=== PATIENT | female | born 1985 | race Caucasian/White ===

== ENCOUNTER 2018-09-01 09:28 | Emergency (ER) | payer SELFPAY ==
[~2018-09-01] VITALS: Ht 170.2 cm; Wt 55.0 kg
[~2018-09-01 09:28] MED LIST: IBUP-1222 PO; PREN1TAB60 PO
[2018-09-01 09:37] VITALS: BP 138/76
[2018-09-01] MEDS ORDERED: DEXAMETHASONE 4 MG TABLET ONE (10:44)
[2018-09-01] MEDS ORDERED: DEXAMETHASONE 4 MG TABLET PO ONE (11:00)
== END 2018-09-01 11:47 | disposition home or self-care (01) ==
LOC: ED 09:50
DX: M67.431 Ganglion, right wrist (principal); J02.9 Acute pharyngitis, unspecified; B34.9 Viral infection, unspecified; N63.0 Unspecified lump in unspecified breast
CPT/HCPCS: 87081; 87880; 99284

== ENCOUNTER 2019-03-28 11:46 | Emergency (ER) | payer MEDICAID ==
[~2019-03-28] VITALS: Ht 170.2 cm; Wt 50.2 kg
[2019-03-28 11:56] VITALS: BP 115/62
== END 2019-03-28 13:34 | disposition home or self-care (01) ==
LOC: ED 13:20
DX: J06.9 Acute upper respiratory infection, unspecified (principal); F17.200 Nicotine dependence, unspecified, uncomplicated
CPT/HCPCS: 71046; 99283

== ENCOUNTER 2019-06-03 17:24 | Emergency (ER) | payer MEDICAID ==
[~2019-06-03] VITALS: Ht 172.7 cm; Wt 50.9 kg
--- NOTE | 2019-06-03 17:44 | NUR ---
PT TO US.
[2019-06-03 17:52] LABS: BASOPHILS # (AUTO) 0.09 x10^3/uL (0-0.1); BASOPHILS % (AUTO) 1 % (0-1); EOSINOPHILS # (AUTO) 0.35 x10^3/uL (0-0.4); EOSINOPHILS % (AUTO) 3 % (1-7); LYMPHOCYTES # (AUTO) 3.13 x10^3/uL (1-3.4); LYMPHOCYTES % (AUTO) 26 % (22-44); MD NO; MEAN CORPUSCULAR HEMOGLOBIN 32.9 pg (27.0-34.8); MEAN CORPUSCULAR HGB CONC 33.1 g/dL (32.4-35.8); MEAN CORPUSCULAR VOLUME 99.2 fL (80-100); MEAN PLATELET VOLUME 8.5 fL (7.4-10.4); MONOCYTES # (AUTO) 0.99 x10^3/uL (0.2-0.8); MONOCYTES % (AUTO) 8 % (2-9); NEUTROPHILS # (AUTO) 7.63 x10^3/uL (1.8-6.8); NEUTROPHILS % (AUTO) 63 % (42-75); PLATELET COUNT 277 x10^3/uL (130-400); RED BLOOD COUNT 4.41 x10^6/uL (3.82-5.3); RED CELL DISTRIBUTION WIDTH 13.9 % (9.6-15.2)
[2019-06-03] MEDS ORDERED: KETOROLAC 30 MG/1 ML IM ONE (18:00)
[2019-06-03] MEDS ORDERED: KETOROLAC 30 MG/1 ML ONE (18:10)
--- NOTE | 2019-06-03 18:17 | NUR ---
PT BACK FROM US. TORADOL GIVEN PER ERP ORDER FOR 8 PELVIC PAIN. URINE COLLECTED/SENT TO LAB.
[2019-06-03 18:40] VITALS: BP 106/62
--- NOTE | 2019-06-03 18:41 | NUR ---
VS UPDATED AND WNL. PT RESTING WITH NO COMPLAINTS.
[2019-06-03 18:54] LABS: CULTURE INDICATED? YES; MICROSCOPIC INDICATED
--- NOTE | 2019-06-03 19:13 | NUR ---
REPORT RECEIVED FROM CHUY SEAMAN.
--- NOTE | 2019-06-03 19:54 | NUR ---
Patient given discharge instructions and they have confirmed that they understand the instructions. Patient ambulatory with steady gait.
== END 2019-06-03 19:55 | disposition home or self-care (01) ==
LOC: ED 17:41
DX: N83.201 Unspecified ovarian cyst, right side (principal); R10.2 Pelvic and perineal pain; M54.5 Low back pain
CPT/HCPCS: 36415; 74018; 76830; 81001; 84703; 85025; 87086; 96372; 99284; J1885

== ENCOUNTER 2019-06-06 19:43 | Emergency (ER) | payer MEDICAID ==
[~2019-06-06] VITALS: Ht 170.2 cm; Wt 52.1 kg
[2019-06-06 19:48] VITALS: BP 106/68
== END 2019-06-06 23:01 | disposition home or self-care (01) ==
LOC: ED 22:55
DX: N93.8 Other specified abnormal uterine and vaginal bleeding (principal); A64 Unspecified sexually transmitted disease; R10.31 Right lower quadrant pain; R10.32 Left lower quadrant pain; R10.33 Periumbilical pain
CPT/HCPCS: 36415; 80053; 81001; 83690; 84703; 85025; 87210; 87491; 87591; 87808; 96372; 99283; J0696

== ENCOUNTER 2019-06-13 15:00 | Emergency (ER) | payer MEDICAID ==
[~2019-06-13] VITALS: Ht 170.2 cm; Wt 42.7 kg
[2019-06-13 15:06] VITALS: BP 107/63
== END 2019-06-13 16:41 | disposition home or self-care (01) ==
LOC: ED 16:10
DX: A74.9 Chlamydial infection, unspecified (principal); A54.9 Gonococcal infection, unspecified; N92.1 Excessive and frequent menstruation with irregular cycle; F17.200 Nicotine dependence, unspecified, uncomplicated
CPT/HCPCS: 96372; 99283; J0696

== ENCOUNTER 2021-05-03 16:24 | Emergency (ER) | payer MEDICAID ==
--- NOTE | 2021-05-03 16:40 | NUR ---
INITNAL CONTACT WITH PATIENT: "ROOM SPINNING" SINCE WAKIGN UP THIS AM. +NAUSEA. PT TO ROOM WITH STEADY GAIT. ATTACHED TO MONITORS. VSS. WHEELER.
[2021-05-03 17:39] LABS: BASOPHILS % (AUTO) 1 % (0-1); EOSINOPHILS % (AUTO) 4 % (1-7); LYMPHOCYTES % (AUTO) 30 % (22-44); MEAN CORPUSCULAR HEMOGLOBIN 32.5 pg (27.0-34.8); MEAN CORPUSCULAR HGB CONC 33.3 g/dL (32.4-35.8); MEAN PLATELET VOLUME 8.6 fL (7.4-10.4); MONOCYTES % (AUTO) 9 % (2-9); NEUTROPHILS % (AUTO) 56 % (42-75); PLATELET COUNT 253 x10^3/uL (130-400); RED BLOOD COUNT 4.26 x10^6/uL (3.82-5.3); RED CELL DISTRIBUTION WIDTH 13.5 % (9.6-15.2)
[2021-05-03 17:48] LABS: ALBUMIN 3.4 g/dL (3.4-5.0); CALCIUM 8.4 mg/dL (8.5-10.1); CHLORIDE 113 mmol/L (98-107); CREATININE 0.64 mg/dL (0.55-1.02)
[2021-05-03 17:59] LABS: ANION GAP 3 mmol/L (5-15)
[2021-05-03 18:03] LABS: MICROSCOPIC INDICATED
--- NOTE | 2021-05-03 18:07 | NUR ---
PT RESTING IN BED. VSKandy. SUMMER.
[2021-05-03 18:38] VITALS: BP 109/55
--- NOTE | 2021-05-03 18:39 | NUR ---
Patient given discharge instructions and they have confirmed that they understand the instructions. Patient ambulatory with steady gait. NAD, all questions answered appropriately, denies additional needs at this time. No personal belongings left in room after discharge.
== END 2021-05-03 18:28 | disposition home or self-care (01) ==
LOC: ED 17:50
DX: R42 Dizziness and giddiness (principal); F17.200 Nicotine dependence, unspecified, uncomplicated
CPT/HCPCS: 36415; 80048; 81001; 82040; 84703; 85025; 87491; 87591; 93005; 99284